=== PATIENT | male | born 1965 | race Caucasian/White ===

== ENCOUNTER 2021-10-29 18:55 | Outpatient (CLI) | payer OTHER, SELFPAY | END 2021-10-29 18:56 | disposition home or self-care (01) | LOC: AMB 11-15 16:47 | PROVIDERS: Visit Provider Internal Medicine | DX: S39.92XA Unspecified injury of lower back, initial encounter (principal); S59.911A Unspecified injury of right forearm, initial encounter; V23.4XXA Motorcycle driver injured in collision with car, pick-up truck or van in traffic accident, initial encounter; Y92.410 Unspecified street and highway as the place of occurrence of the external cause | CPT/HCPCS: A0425; A0429 ==